=== PATIENT | female | born 2000 | race Caucasian/White ===

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

== ENCOUNTER 2019-04-11 15:46 | Observation (INO) ==
[2019-04-11] MEDS ORDERED: Betamethasone Acet/SodPhos 30 MG/5 ML VIAL IM SCH (16:00)
[2019-04-11] MEDS ORDERED: Ringers Solution, Lactated 1,000 ML IVC ONE (16:48)
[2019-04-11] MEDS ORDERED: Ringers Solution, Lactated 1,000 ML ONE (16:57)
[2019-04-11 20:14] LABS: Bilirubin,Urine Negative (Negative); Blood,Urine Negative (Negative); Clarity,Urine Cloudy (Clear); Color,Urine Yellow (Yellow); Glucose,Urine (UA) Normal (Normal); Ketones,Urine 40 mg/dL (Negative); Leukocyte Esterase,Urine Negative (Negative); Nitrite,Urine Negative (Negative); Protein,Urine Negative (Neg-Trace); Specific Gravity,Urine 1.021 (1.010-1.025); Urobilinogen,Urine Normal (Normal)
[2019-04-11 20:19] LABS: Amphetamine Screen,Urine Negative ng/mL (Cutoff=1000); Barbiturate Screen,Urine Negative ng/mL (Cutoff=200); Benzodiazepines Screen,Urine Negative ng/mL (Cutoff=200); Cannabinoid Screen,Urine Negative ng/mL (Cutoff = 50); Cocaine Screen,Urine Negative ng/mL (Cutoff= 300); Opiate Screen,Urine Negative ng/mL (Cutoff=300); Phencyclidine Screen,Urine Negative ng/mL (Cutoff=25)
[2019-04-11 20:33] LABS: Mucus,Urine Few (Few); Squamous Epithelial Cell,Urine Moderate per lpf (None-Few)
--- NOTE | 2019-04-11 21:22 | Discharge Summary ---
Date of Encounter: 04/11/19 Time of Encounter: 21:22 - Discharge Diagnosis (1) 34 weeks gestation of Priority: Primary Status: Acute Comments: Patient is to return tomorrow at 1700 for her second betamethasone injection in 2 hours of monitoring Discharge home (2) Asymmetric intrauterine growth restriction (IUGR) Priority: Secondary Status: Acute Comments: Plan of care per Dr. So - Discharge Medications Prescriptions: No Action Prenat Vit Comb.10/Iron/FA/Dha [Vitafol-Ob+Dha Combo Pack] 1 tab PO DAILY Home Medications: Prenat Vit Comb.10/Iron/FA/Dha [Vitafol-Ob+Dha Combo Pack] 1 tab PO DAILY 12/30/16 [History] Allergies/Adverse Reactions: Allergy/AdvReac Type Severity Reaction Status Date / Time No Known Allergies Allergy Verified 08/21/16 15:37 Data Procedures and tests throughout hospitalization: Laboratory Tests 04/11/19 04/11/19 19:48 19:50 Urine Color Yellow Urine Clarity Cloudy A Urine pH 6.0 Ur Specific [place] 1.021 Urine Protein Negative Urine Glucose (UA) Normal Urine Ketones 40 H Urine Blood Negative Urine Nitrite Negative Urine Bilirubin Negative Urine Urobilinogen Normal Ur Leukocyte Esterase Negative Ur Squamous Epith Cells Moderate H Urine Mucus Few Ur Culture Indicated? NO Urine Opiates Screen Negative Ur Buprenorphine Scrn Negative Ur Barbiturates Screen Negative Ur Phencyclidine Scrn Negative Ur Amphetamines Screen Negative U Benzodiazepines Scrn Negative Urine Cocaine Screen Negative U Marijuana (THC) Screen Negative Ur Drug Screen Interp See Below Labs on day of discharge: Labs from last 24 hours 04/11/19 04/11/19 19:50 19:48 Urine Color Yellow Urine Clarity Cloudy A Urine pH 6.0 Ur Specific [place] 1.021 Urine Protein Negative Urine Glucose (UA) Normal Urine Ketones 40 H Urine Blood Negative Urine Nitrite Negative Urine Bilirubin Negative Urine Urobilinogen Normal Ur Leukocyte Esterase Negative Ur Squamous Epith Cells Moderate H Urine Mucus Few Ur Culture Indicated? NO Urine Opiates Screen Negative Ur Buprenorphine Scrn Negative Ur Barbiturates Screen Negative Ur Phencyclidine Scrn Negative Ur Amphetamines Screen Negative U Benzodiazepines Scrn Negative Urine Cocaine Screen Negative U Marijuana (THC) Screen Negative Ur Drug Screen Interp See Below Date of admission: 04/11/19 15:46 Primary care physician: PCP NONE Discharging clinician: Meenakshi Ayala Anticipated date of discharge: 04/11/19 - Patient Status Disposition: Home, Self-Care Condition: Good Functional capacity at discharge: independent ambulation Overall status at discharge: patient is progressing back to baseline - Discharge Instructions Follow Up With: NONE,PCP [Primary Care Provider] - Brett So MD [Partnered Physician] - Additional Instructions: LABOR AND DELIVERY DISCHARGE INSTRUCTIONS Signs and Symptoms to be Reported to your Doctor Immediately: * Sudden gush, continuous or intermittent lead of fluid from vagina (note the time of gush and color of fluid) * Onset of bright red vaginal bleeding with or without pain (if you had a vaginal exam during this visit you may notice some dark red spotting. This is normal.) * Lower abdominal cramping or backache that is premenstrual-like feeling. * More than 6 contractions in one hour. * Burning during urination, having to urinate more frequently or pain in your mid-back. * A change in the baby's activity. This could be an increase or decrease in activity. * Severe headache which does not go away with tylenol. * Sudden swelling in the face, hands, arms and/or legs. * Upper abdominal pain - sometimes associated with heartburn or nausea and is not relieved by Maalox, Mylanta or Tums. * Dizziness or blurred vision or visual disturbances (seeing stars/lights). * Kick Counts One hour after a meal, lay down on one side in a quiet place. Count the number of regi the baby moves during an hour. If less than 6 movements, notify your physician. Diet: *Force fluids - 8-10 tall glasses of fluid per day. May include popsicles and jello. *Limit caffeine - this includes chocolate, coffee, tea, any soft drink containing such as all nila, [place] Yellow and Mountain Dew Follow up all schedule appointments Return to L&D on 04/12/19 at 5pm for second dose of steroids. (4pm is the earliest). - Diet and Activity Activity: increase activity as tolerated Diet: regular diet Hospital Course REMOTELY OPERATED VEHICLE Reason for admission: other Discharge diagnosis: other Hospital course: Patient was sent over from the office for betamethasone injection and 2 hours of continuous monitoring secondary to severe IUGR noted on ultrasound today with BPP 6 out of 8. Patient was monitored and found to be roxane so she was kept for much longer than this. Her cervix was checked twice amended change. She endorses good movement and denies leakage of fluid, vaginal bleeding and feeling the contractions. She was discharged home with instructions to follow-up tomorrow at 1700 Time Attestation: Total time spent providing and/or coordinating discharge services: Time Spent: Less than 30 minutes Exam - Constitutional General appearance IM: A&O X 3, morbidly obese, pleasant, answers questions appropriately - Respiratory Respiratory exam: Present: CTAB - Cardiovascular Cardiovascular exam IM: Present: RRR, +S1, +S2 - GI/Abdominal GI/Abdominal exam IM: normal bowel sounds, no peritoneal signs - Rectal Rectal exam: deferred - Uterine Tone: Firm - Extremities Exam Extremities exam IM: Present: full ROM, normal capillary refill, normal inspection, radial pulses palpable and symmetrical - Neurological Exam Neurological exam: alert, oriented X3, strengths equal and symetr throughout - VTE Reasons for not Prescribing Prophylaxis: Treatment not Indicated - Low risk for VTE
== END 2019-04-11 21:04 | disposition home or self-care (01) ==
LOC: 1NENULAB
PROVIDERS: ADMIT Advanced Practice Midwife; ATTEND Advanced Practice Midwife

== ENCOUNTER 2019-04-12 16:34 | Observation (INO) ==
[2019-04-12] MEDS ORDERED: Betamethasone Acet/SodPhos 30 MG/5 ML VIAL IM SCH (17:00)
--- NOTE | 2019-04-12 17:42 | OB/GYN Progress Note ---
Date of Encounter: 04/12/19 Time of Encounter: 17:38 - Assessment and Plan (1) NST (non-stress test) reactive Current Visit: Yes Status: Acute 135 RNST. (2) 34 weeks gestation of Current Visit: No Status: Acute (3) Asymmetric intrauterine growth restriction (IUGR) Current Visit: No Status: Acute Subjective - Subjective Interval history: 19 year-old presenting at 34 weeks 3 days for her second dose of celestone and 2 hours of monitoring due to IUGR with BPP 6/8. Pt denies complaints at this time. Antepartum ROS: movement normal, no loss of fluid, no vaginal bleeding, no contractions Objective - Vital Signs Vital Signs: Intake and Output 04/12/19 04/12/19 04/12/19 07:59 15:59 23:59 Other: Weight 59.4 kg Patient Weight 04/12/19 23:59 Weight 59.4 kg - Exam FHR: category 1 FHR comments: 135 RNST Abdomen: Present: soft, gravid. Absent: tenderness Uterus: Absent: tenderness
== END 2019-04-12 18:50 | disposition home or self-care (01) ==
LOC: 1NENULAB
PROVIDERS: ADMIT Obstetrics & Gynecology; ATTEND Obstetrics & Gynecology

== ENCOUNTER 2019-05-18 03:44 | Inpatient (IN) ==
[2019-05-18] MEDS ORDERED: *HR* Nalbuphine 10 MG/ML AMPUL IVP PRN (04:27)
[2019-05-18] MEDS ORDERED: Metoclopramide 10 MG/2 ML VIAL IVP PRN (04:27)
[2019-05-18] MEDS ORDERED: miSOPROStol 25 MCG TABLET VG PRN (04:27)
[2019-05-18] MEDS ORDERED: Famotidine 20 MG/2 ML VIAL IVP PRN (04:27)
[2019-05-18] MEDS ORDERED: Ringers Solution, Lactated 1,000 ML IVC SCH (04:30)
[2019-05-18 05:06] LABS: Basophils % 0.4 %; Eosinophils # 0.1 K/mcL (0.0-0.6); Eosinophils % 1.7 %; Hematocrit 31.4 % (35.3-44.9); Hemoglobin 9.6 g/dL (11.5-15.4); Immature Granulocytes % 0.6 % (0-4); Lymphocytes # 1.7 K/mcL (0.6-4.6); Lymphocytes % 24.5 %; Mean Corpuscular HGB Conc 30.6 g/dL (31.6-35.5); Mean Corpuscular Hemoglobin 22.6 pg (28.0-33.3); Mean Corpuscular Volume 73.9 fL (83.0-100.0); Mean Platelet Volume 9.6 fL (9.4-12.4); Monocytes # 0.5 K/mcL (0.0-1.3); Monocytes % 7.1 %; Neutrophils # 4.6 K/mcL (1.6-8.9); Platelet Count 235 K/mcL (140-400); Red Blood Count 4.25 M/mcL (3.82-4.97); Red Cell Distribution Width 19.2 % (11.5-14.5); Segmented Neutrophils % 65.7 %
[2019-05-18 05:12] LABS: Amphetamine Screen,Urine Negative ng/mL (Cutoff=1000); Barbiturate Screen,Urine Negative ng/mL (Cutoff=200); Benzodiazepines Screen,Urine Negative ng/mL (Cutoff=200); Cannabinoid Screen,Urine Negative ng/mL (Cutoff = 50); Cocaine Screen,Urine Negative ng/mL (Cutoff= 300); Opiate Screen,Urine Negative ng/mL (Cutoff=300); Phencyclidine Screen,Urine Negative ng/mL (Cutoff=25)
[2019-05-18] MEDS ORDERED: Oxytocin 20 units/ LR 1000 mL 20 UNIT/1,000 ML BAG IVC SCH ×2 (09:30→18:15)
[2019-05-18] MEDS ORDERED: Bupivacaine-MPF 0.25% 10 ML VIAL EP ONE (10:23)
[2019-05-18] MEDS ORDERED: *HR* FentaNYL (PF) 100 MCG/2 ML VIAL EP ONE (10:23)
[2019-05-18] MEDS ORDERED: Epidural Premix (fent/bupiv) 110 ML EP SCH (10:30)
[2019-05-18] MEDS ORDERED: Ibuprofen 600 MG TABLET PO ONE (18:10)
[2019-05-18] MEDS ORDERED: Measles/Mumps/Rubella Vacc 0.5 ML VIAL SQ PRN (18:13)
[2019-05-18] MEDS ORDERED: Acetaminophen 325 MG TABLET PO PRN (18:13)
[2019-05-18] MEDS ORDERED: Rho Immune Globulin 1,500 UNIT SYRINGE IM PRN (18:13)
[2019-05-19 06:07] LABS: Basophils % 0.3 %; Eosinophils # 0.1 K/mcL (0.0-0.6); Eosinophils % 1.2 %; Hematocrit 32.1 % (35.3-44.9); Hemoglobin 9.6 g/dL (11.5-15.4); Immature Granulocytes % 0.5 % (0-4); Lymphocytes # 1.5 K/mcL (0.6-4.6); Mean Corpuscular HGB Conc 29.9 g/dL (31.6-35.5); Mean Corpuscular Hemoglobin 22.6 pg (28.0-33.3); Mean Corpuscular Volume 75.7 fL (83.0-100.0); Mean Platelet Volume 9.8 fL (9.4-12.4); Monocytes # 0.8 K/mcL (0.0-1.3); Monocytes % 7.8 %; Neutrophils # 7.5 K/mcL (1.6-8.9); Platelet Count 222 K/mcL (140-400); Red Blood Count 4.24 M/mcL (3.82-4.97); Red Cell Distribution Width 19.4 % (11.5-14.5); Segmented Neutrophils % 75.2 %
[2019-05-19] MEDS: Ibuprofen 600 MG TABLET PO PRN ×2 (08:26→19:51)
[2019-05-19] MEDS: Prenatal Vit/FA 1 EACH TABLET PO SCH (08:27)
[2019-05-19] MEDS ORDERED: Etonogestrel 68 MG IMPLANT IL ONE (09:33)
[2019-05-19] MEDS ORDERED: Lidocaine 1% 20 ML MDV ID ONE (09:34)
[2019-05-20] MEDS: Prenatal Vit/FA 1 EACH TABLET PO SCH (07:39)
[2019-05-20 08:12] VITALS: BP 113/72
== END 2019-05-20 11:30 | disposition home or self-care (01) | DRG 560 ==
LOC: 1NENULAB 03:44 → 1NENUOBS 20:42
PROVIDERS: ADMIT Student in an Organized Health Care Education/Training Program; ATTEND Student in an Organized Health Care Education/Training Program

== ENCOUNTER → 2021-04-21 09:55 | Observation (INO) ==
[2021-04-21 09:41] LABS: Bilirubin,Urine Negative (Negative); Blood,Urine Negative (Negative); Clarity,Urine Clear (Clear); Color,Urine Light-Yellow (Yellow); Glucose,Urine (UA) Normal (Normal); Ketones,Urine Negative (Negative); Leukocyte Esterase,Urine Negative (Negative); Nitrite,Urine Negative (Negative); Protein,Urine Trace mg/dL (Neg-Trace); Specific Gravity,Urine 1.023 (1.010-1.025); Urobilinogen,Urine Normal (Normal)
== END | disposition home or self-care (01) ==
LOC: 1NENULAB
PROVIDERS: ADMIT Student in an Organized Health Care Education/Training Program; ATTEND Student in an Organized Health Care Education/Training Program

== ENCOUNTER → 2021-07-02 22:12 | Observation (INO) ==
[2021-07-02 21:46] LABS: Bilirubin,Urine Negative (Negative); Blood,Urine Negative (Negative); Clarity,Urine Clear (Clear); Color,Urine Light-Yellow (Yellow); Glucose,Urine (UA) Normal (Normal); Ketones,Urine Negative (Negative); Leukocyte Esterase,Urine Negative (Negative); Nitrite,Urine Negative (Negative); Protein,Urine Negative (Neg-Trace); Specific Gravity,Urine 1.016 (1.010-1.025); Urobilinogen,Urine Normal (Normal)
== END | disposition home or self-care (01) ==
LOC: 1NENULAB
PROVIDERS: ADMIT Obstetrics & Gynecology; ATTEND Obstetrics & Gynecology

== ENCOUNTER → 2021-07-03 19:17 | Observation (INO) ==
[2021-07-03 20:04] LABS: Candida DNA Not Detected (Not Detect); Gardnerella DNA Not Detected (Not Detect); Trichomonas DNA Not Detected (Not Detect)
== END | disposition home or self-care (01) ==
LOC: 1NENULAB
PROVIDERS: ADMIT Obstetrics & Gynecology; ATTEND Obstetrics & Gynecology

== ENCOUNTER 2021-08-09 07:36 | Inpatient (IN) ==
[2021-08-09] MEDS ORDERED: Naloxone 0.4 MG/ML INJ IVP PRN (08:33)
[2021-08-09] MEDS ORDERED: Famotidine 20 MG/2 ML VIAL IVP PRN (08:33)
[2021-08-09] MEDS ORDERED: Metoclopramide 10 MG/2 ML VIAL IVP PRN (08:33)
[2021-08-09 09:05] LABS: Amphetamine Screen,Urine Negative ng/mL (Cutoff=1000); Barbiturate Screen,Urine Negative ng/mL (Cutoff=200); Benzodiazepines Screen,Urine Negative ng/mL (Cutoff=200); Cannabinoid Screen,Urine Negative ng/mL (Cutoff = 50); Cocaine Screen,Urine Negative ng/mL (Cutoff= 300); Opiate Screen,Urine Negative ng/mL (Cutoff=300); Phencyclidine Screen,Urine Negative ng/mL (Cutoff=25)
[2021-08-09 09:31] LABS: Influenza A PCR Negative (Negative); Influenza B PCR Negative (Negative); Resp. Syncytial Virus PCR Negative (Negative)
[2021-08-09] MEDS ORDERED: miSOPROStoL 25 MCG TABLET PO PRN (09:48)
[2021-08-09 10:19] LABS: Basophils % 0.3 %; Eosinophils # 0.1 K/mcL (0.0-0.6); Hematocrit 34.4 % (35.3-44.9); Hemoglobin 10.5 g/dL (11.5-15.4); Immature Granulocytes % 0.4 % (0-4); Lymphocytes # 1.5 K/mcL (0.6-4.6); Lymphocytes % 16.4 %; Mean Corpuscular HGB Conc 30.5 g/dL (31.6-35.5); Mean Corpuscular Hemoglobin 23.7 pg (28.0-33.3); Mean Corpuscular Volume 77.7 fL (83.0-100.0); Mean Platelet Volume 9.4 fL (9.4-12.4); Monocytes # 0.5 K/mcL (0.0-1.3); Monocytes % 5.3 %; Platelet Count 265 K/mcL (140-400); Red Blood Count 4.43 M/mcL (3.82-4.97); Red Cell Distribution Width 13.8 % (11.5-14.5); Segmented Neutrophils % 76.6 %; White Blood Count 9.1 K/mcL (4.3-11.1)
[2021-08-09] MEDS ORDERED: EPHEDrine 50 MG/ML VIAL IVP PRN (10:55)
[2021-08-09] MEDS ORDERED: Epidural Premix (fent/bupiv) 110 ML EP SCH (11:00)
[2021-08-09 11:02] LABS: SARS-CoV-2 by PCR (In House) Negative (Negative)
[2021-08-09] MEDS: Ringers Solution, Lactated 1,000 ML IVC SCH ×2 (12:00→15:30)
[2021-08-09] MEDS ORDERED: Lidocaine 1% 20 ML MDV ONE (12:40)
[2021-08-09] MEDS ORDERED: Oxytocin 20 units/ LR 1000 mL 20 UNIT/1,000 ML BAG IVC ONE (16:38)
[2021-08-09] MEDS ORDERED: Ibuprofen 600 MG TABLET PO ONE (17:03)
[2021-08-09] MEDS ORDERED: Ondansetron ODT 4 MG TAB.RAPDIS SL PRN (19:02)
[2021-08-09] MEDS ORDERED: Oxytocin 20 units/ LR 1000 mL 20 UNIT/1,000 ML BAG IVC SCH (19:02)
[2021-08-09] MEDS ORDERED: Rho Immune Globulin 1,500 UNIT SYRINGE IM PRN (19:02)
[2021-08-09] MEDS ORDERED: Lanolin 7 G OINT...G. TP PRN (19:02)
[2021-08-09] MEDS ORDERED: Measles/Mumps/Rubella Vacc 0.5 ML VIAL SQ PRN (19:02)
[2021-08-09] MEDS ORDERED: Benzocaine/Menthol 56 GM AEROSOL SPRAY TP PRN (19:02)
[2021-08-09] MEDS: Acetaminophen 325 MG TABLET PO SCH (20:37)
[2021-08-09] MEDS ORDERED: Ibuprofen 600 MG TABLET PO SCH (22:30)
[2021-08-10 04:34] VITALS: TEMP 98.4
[2021-08-10 04:48] LABS: Basophils % 0.4 %; Eosinophils # 0.1 K/mcL (0.0-0.6); Eosinophils % 1.3 %; Immature Granulocytes % 0.4 % (0-4); Lymphocytes # 1.8 K/mcL (0.6-4.6); Lymphocytes % 17.6 %; Mean Corpuscular Hemoglobin 24.1 pg (28.0-33.3); Mean Corpuscular Volume 77.5 fL (83.0-100.0); Mean Platelet Volume 9.8 fL (9.4-12.4); Monocytes # 0.5 K/mcL (0.0-1.3); Monocytes % 5.3 %; Neutrophils # 7.5 K/mcL (1.6-8.9); Platelet Count 237 K/mcL (140-400); Red Blood Count 3.74 M/mcL (3.82-4.97); Red Cell Distribution Width 13.7 % (11.5-14.5)
[2021-08-10] MEDS: Acetaminophen 325 MG TABLET PO SCH (08:05)
[2021-08-10 08:07] VITALS: BP 113/68; PULSE 90; O2SAT 99
[2021-08-10] MEDS ORDERED: Prenatal Vit/FA 1 EACH TABLET PO SCH ×2 (09:00)
[2021-08-10] MEDS ORDERED: Etonogestrel 68 MG IMPLANT IL ONE ×3 (10:25→16:00)
[2021-08-10] MEDS ORDERED: Lidocaine 1% 20 ML MDV ID ONE (10:25)
== END 2021-08-10 15:48 | disposition home or self-care (01) | DRG 560 ==
LOC: 1NENULAB 07:36 → 1NENUOBS 19:03
PROVIDERS: ADMIT Student in an Organized Health Care Education/Training Program; ATTEND Student in an Organized Health Care Education/Training Program